=== PATIENT | male | born 1960 | race Caucasian/White ===

== ENCOUNTER → 2018-06-19 | Outpatient (CLI) | payer OTHER ==
--- NOTE | 2018-06-19 17:13 | Diagnostic Imaging Report ---
INDICATION: Difficulty breathing. TIME OF EXAM: 5:03 p.m. COMPARISON: No prior studies are available for comparison. FINDINGS: The heart size is normal. The pulmonary vascularity is unremarkable. The lungs are clear. No infiltrate, effusion or pneumothorax is detected. IMPRESSION: No acute cardiopulmonary process is detected. Dictated by: Dictated on workstation # [id number]
== END ==
LOC: RAD FS 16:54
PROVIDERS: ATTEND Family Medicine
DX: R06.09 Other forms of dyspnea (principal)
CPT/HCPCS: 71046